=== PATIENT | female | born 1995 | race Caucasian/White ===

== ENCOUNTER 2023-12-08 12:23 | Emergency (ER) | payer MEDICAID, SELFPAY ==
--- NOTE | 2023-12-08 | US_ITS ---
WS: [id number] US pelvic complete* [id number] HISTORY: rlq pain COMPARISON: None available. Uterus: 5.8 cm x 4.1 cm x 4.1 cm. Normal size retroverted uterus. No fibroid or mass identified. Endometrium: 0.3 cm. Normal. Right ovary: 3.6 cm x 2.2 cm x 3.2 cm. Normal size and vascularity, no cystic or solid masses. Left ovary: 3.7 cm x 3.6 cm x 2.7 cm. Normal size and vascularity, no cystic or solid masses. No free fluid in the cul-de-sac. US/US transvaginal [id number] IMPRESSION: Negative transvaginal pelvic ultrasound.
[2023-12-08 12:24] VITALS: BP 120/65; PULSE 98; RESP 18; TEMP 36.6; O2SAT 99; BMI 18.8
--- NOTE | 2023-12-08 12:37 | ED_ITS ---
Documented by User: RODNEY Rosen 12/08/23 12:37 HPI - Abdominal Pain 2 General: Chief Complaint: Abdominal Pain Stated Complaint: Dr. Wilks sent over possible appendix Time Seen by Provider: 12/08/23 12:37 Related Data: Date of Last Menstrual Period: 12/08/23 [facility] 2 Female Reproductive History: Date of last menstrual period: 12/08/23 Course 2 Vital Signs: Vital signs: Vital Signs Temperature 97.9 F 12/08/23 12:24 Pulse Rate 98 12/08/23 12:24 Respiratory Rate 17 12/08/23 15:17 Blood Pressure 120/65 12/08/23 12:24 Pulse Oximetry 100 12/08/23 15:17 Oxygen Delivery Me thod Room Air 12/08/23 12:24 MDM - Abdominal Pain Lab Data 12/08/23 12:52 12/08/23 12:52 Labs/Radiology: Radiology Impressions Pelvis Ultrasound 12/08/23 12:46 IMPRESSION: Negative transvaginal pelvic ultrasound. Abdomen/Pelvis CT 12/08/23 14:53 IMPRESSION: 1. No evidence of acute abnormality in the abdomen or pelvis within limitations of a noncontrast exam. Laboratory Results WBC 4.88 10^3/uL (3.29-11.43) 12/08/23 12:52 RBC 5.04 10^6/uL (3.85-5.65) 12/08/23 12:52 Hgb 16.30 g/dL (11.27-16.99) 12/08/23 12:52 Hct 47.9 % (36-47) H 12/08/23 12:52 MCV 95.0 fl (85-98) 12/08/23 12:52 MCH 32.3 pg (27-33) 12/08/23 12:52 MCHC 34.0 g/dL (30-55) 12/08/23 12:52 RDW 11.7 % (12.1-15.1) L 12/08/23 12:52 Plt Count 168 10^3/cmm (157-399) 12/08/23 12:52 MPV 10.7 fL (7.4-10.4) H 12/08/23 12:52 Neut % (Auto) 85.0 % 12/08/23 12:52 Lymph % (Auto) 10.7 % 12/08/23 12:52 Beckham % (Auto) 3.5 % 12/08/23 12:52 Eos % (Auto) 0.2 % 12/08/23 12:52 Baso % (Auto) 0.4 % 12/08/23 12:52 Neut # (Auto) 4.15 10^3/uL (1.8-7.7) 12/08/23 12:52 Lymph # (Auto) 0.5 10^3/uL (0.8-4.8) L 12/08/23 12:52 Beckham # (Auto) 0.2 10^3/uL (0.2-0.9) 12/08/23 12:52 Eos # (Auto) 0.0 10^3/uL (0.0-0.8) 12/08/23 12:52 Baso # (Auto) 0.0 10^3/uL (0.0-0.1) 12/08/23 12:52 Nucleated RBC % (auto) 0 % 12/08/23 12:52 Nucleated RBCs # 0.0 /100WBC 12/08/23 12:52 Sodium 141 mmol/L (136-145) 12/08/23 12:52 Potassium 4.0 mmol/L (3.5-5.1) 12/08/23 12:52 Chloride 103 mmol/L (98-107) 12/08/23 12:52 Carbon Dioxide 25 mmol/L (22-29) 12/08/23 12:52 Anion Gap 17.0 (5-19) 12/08/23 12:52 BUN 10 mg/dL (6-20) 12/08/23 12:52 Creatinine 0.6 mg/dL (0.5-0.9) 12/08/23 12:52 GFR Calculation 118.2 mL/min (90-130) 12/08/23 12:52 Glucose 98 mg/dL (65-115) 12/08/23 12:52 Calculated Osmolality 291 mOsm/kg (285-295) 12/08/23 12:52 Calcium 9.8 mg/dL (8.5-10.5) 12/08/23 12:52 Total Bilirubin 0.5 mg/dL (0.15-1.2) 12/08/23 12:52 AST 11 U/L (0-32) 12/08/23 12:52 ALT 9 U/L (0-33) 12/08/23 12:52 Alkaline Phosphatase 74 U/L (35-105) 12/08/23 12:52 C-Reactive Protein 3.0 mg/L (0.0-4.9) 12/08/23 12:52 Total Protein 8.1 g/dL (6.6-8.7) 12/08/23 12:52 Albumin 5.0 g/dL (3.5-5.2) 12/08/23 12:52 Globulin 3.1 g/dL (1.3-4.6) 12/08/23 12:52 Lipase 20 U/L (13-60) 12/08/23 12:52 HCG, Qual Negative (Negative) 12/08/23 12:52 Urine Color Yellow (Yellow) 12/08/23 13:20 Urine Appearance Clear (CLEAR) 12/08/23 13:20 Urine pH 7 (5-7) 12/08/23 13:20 Ur Specific [place] 1.005 (1.005-1.030) 12/08/23 13:20 Urine Protein Neg (Negative) 12/08/23 13:20 Urine Glucose (UA) Norm (Normal) 12/08/23 13:20 Urine Ketones Negative (Negative) 12/08/23 13:20 Urine Blood 3+ (Negative) H 12/08/23 13:20 Urine Nitrate Negative (Negative) 12/08/23 13:20 Urine Bilirubin Neg (Negative) 12/08/23 13:20 Urine Urobilinogen Norm mg/dL (Negative) 12/08/23 13:20 Ur Leukocyte Esterase Negative (Negative) 12/08/23 13:20 Urine RBC 0-4 /hpf (0-2) H 12/08/23 13:20 Urine WBC 0-4 /hpf (0-5) H 12/08/23 13:20 Ur Squamous Epith Cells 0-4 /hpf (0-5) H 12/08/23 13:20 Amorphous Sediment Not Reportable 12/08/23 13:20 Urine Bacteria Trace /hpf (NONE) 12/08/23 13:20 Urine Mucus 1+ /hpf 12/08/23 13:20 Discharge Plan Discharge Patient Disposition: Home Clinical Impression: Abdominal pain Qualifiers: Abdominal location: right lower quadrant Qualified Code(s): R10.31 - Right lower quadrant pain Condition: Stable Prescriptions: New ondansetron 8 mg tablet,disintegrating 8 mg PO .q6 PRN (Reason: nausea and vomiting) Qty: 14 0RF diclofenac sodium 50 mg tablet,delayed release (DR/EC) 50 mg PO Q12H Qty: 20 0RF No Action oxcarbazepine 150 mg tablet See Rx Instructions .ROUTE .COMPLEX Rx Instructions: TAKE 1 TABLET BY MOUTH IN THE MORNING THEN TAKE 2 TABLETS BY MOUTH IN THE EVENING. clonazepam 1 mg tablet 1 mg PO TID folic acid 1 mg tablet 2 mg PO DAILY tizanidine 4 mg capsule 4 mg PO Q8H Discharge Orders: Discharge ED (Routine); Ordered 12/08/23 Ordered By: Fior Leos Discharge Diet: Usual diet Discharge Activity: Increase activity as tolerated Patient Instructions: Abdominal Pain (ED), Opioid Safety, Pain Management Activity Restrictions/Additional Instructions: Thank you for choosing [facility] for your healthcare needs today. Please realize this is an emergency room and that we are providing you with a medical screening exam and this may not be complete and all inclusive of all the testing and or work up that you may need to determine your ailment or severity of your illness. You have been screened and evaluated and felt safe for discharge. Health conditions do change or evolve sometimes and as such it is important that you follow up with your Primary Doctor to be re checked, 3-5 days is a general good time frame for follow up. You are always welcome to return to the ED for re assessment if your symptoms are worsening or you have new concerns Coding Level of Care Code ED Cafeteria Server for [employer] Documented by User: Fior Leos MD 12/08/23 17:15 HPI - Abdominal Pain 2 General: Chief Complaint: Abdominal Pain Stated Complaint: Dr. Wilks sent over possible appendix Time Seen by Provider: 12/08/23 12:37 History of Present Illness: 28-year-old female who presents emergenc y room with right lower quadrant pain. Her doctor told her to come here because they are worried about an ovarian cyst. Pain and present for several hours now. No nausea or vomiting. No dysuria. No fevers. Review of Systems 2 Narrative: Constitutional symptoms: Negative except as documented in HPI. Skin symptoms: Negative except as documented in HPI. Eye symptoms: Negative except as documented in HPI. ENMT symptoms: Negative except as documented in HPI. Respiratory symptoms: Negative except as documented in HPI. Cardiovascular symptoms: Negative except as documented in HPI. Gastrointestinal symptoms: Negative except as documented in HPI. Genitourinary symptoms: Negative except as documented in HPI. Musculoskeletal symptoms: Negative except as documented in HPI. Neurologic symptoms: Negative except as documented in HPI. Psychiatric symptoms: Negative except as documented in HPI. Endocrine symptoms: Negative except as documented in HPI. Physical Exam 2 Narrative: EXAM NARRATIVE: General: Alert, no acute distress. Skin: Warm, dry. Head: Normocephalic, atraumatic. Neck: Supple, trachea midline. Eye: Extraocular movements are intact. Ears, nose, mouth and throat: mucosa moist. Cardiovascular: Regular, Normal peripheral perfusion. Respiratory: Lungs are clear to auscultation, respirations are non-labored, breath sounds are equal, Symmetrical chest wall expansion. Gastrointestinal: Soft, moderate right lower quadrant tenderness to palpation, Non distended Musculoskeletal: Normal ROM, no deformity. Neurological: Alert and oriented, No focal neurological deficit observed. Psychiatric: Cooperative, appropriate mood & affect. Course 2 Vital Signs: Vital signs: Vital Signs Temperature 97.9 F 12/08/23 12:24 Pulse Rate 98 12/08/23 12:24 Respiratory Rate 17 12/08/23 15:17 Blood Pressure 120/65 12/08/23 12:24 Pulse Oximetry 100 12/08/23 15:17 Oxygen Delivery Me thod Room Air 12/08/23 12:24 MDM - Abdominal Pain Medical Decision Making Medical decision making: Differential diagnosis for this patient with right lower quadrant abdominal pain including but not limited to and based on the above HPI, review of systems and physical exam: Ureterolithiasis. Urinary tract infection. Appendicitis. colitis. small bowel obstruction. Crohn's flare. Pancreatitis. Cholelithiasis or cholecystitis. Hepatitis. Diverticulitis. Constipation. ovarian cyst. ovarian torsion Workup: Orders were placed to evaluate differential diagnosis based on the above differential, HPI and exam: Lab Review: Laboratory results were reviewed and interpreted by myself the emergency room physician. Lab work is completely normal. No leukocytosis. No anemia. No renal failure. CRP is normal. Pelvic ultrasound: No acute abnormality. This was reviewed and interpreted by myself the emergency room physician. I also reviewed the radiology report. CT of the abdomen and pelvis with contrast: No acute abnormality in the abdomen or pelvis. This was reviewed and interpreted by myself the emergency room physician. I also reviewed the radiology report. I reviewed the patient's medical record Reexamination: Patient says she feels a lot better after pain medications. No altered mental status. No focal motor deficits. No increased work of breathing Assessment and plan: Abdominal pain - Discharged home - Discussed plan with patient. Answered any questions. - Evaluation and treatment of this problem were appropriate in the emergency setting. Lab Data 12/08/23 12:52 12/08/23 12:52 Labs/Radiology: Radiology Impressions Pelvis Ultrasound 12/08/23 12:46 IMPRESSION: Negative transvaginal pelvic ultrasound. Abdomen/Pelvis CT 12/08/23 14:53 IMPRESSION: 1. No evidence of acute abnormality in the abdomen or pelvis within limitations of a noncontrast exam. Laboratory Results WBC 4.88 10^3/uL (3.29-11.43) 12/08/23 12:52 RBC 5.04 10^6/uL (3.85-5.65) 12/08/23 12:52 Hgb 16.30 g/dL (11.27-16.99) 12/08/23 12:52 Hct 47.9 % (36-47) H 12/08/23 12:52 MCV 95.0 fl (85-98) 12/08/23 12:52 MCH 32.3 pg (27-33) 12/08/23 12:52 MCHC 34.0 g/dL (30-55) 12/08/23 12:52 RDW 11.7 % (12.1-15.1) L 12/08/23 12:52 Plt Count 168 10^3/cmm (157-399) 12/08/23 12:52 MPV 10.7 fL (7.4-10.4) H 12/08/23 12:52 Neut % (Auto) 85.0 % 12/08/23 12:52 Lymph % (Auto) 10.7 % 12/08/23 12:52 Beckham % (Auto) 3.5 % 12/08/23 12:52 Eos % (Auto) 0.2 % 12/08/23 12:52 Baso % (Auto) 0.4 % 12/08/23 12:52 Neut # (Auto) 4.15 10^3/uL (1.8-7.7) 12/08/23 12:52 Lymph # (Auto) 0.5 10^3/uL (0.8-4.8) L 12/08/23 12:52 Beckham # (Auto) 0.2 10^3/uL (0.2-0.9) 12/08/23 12:52 Eos # (Auto) 0.0 10^3/uL (0.0-0.8) 12/08/23 12:52 Baso # (Auto) 0.0 10^3/uL (0.0-0.1) 12/08/23 12:52 Nucleated RBC % (auto) 0 % 12/08/23 12:52 Nucleated RBCs # 0.0 /100WBC 12/08/23 12:52 Sodium 141 mmol/L (136-145) 12/08/23 12:52 Potassium 4.0 mmol/L (3.5-5.1) 12/08/23 12:52 Chloride 103 mmol/L (98-107) 12/08/23 12:52 Carbon Dioxide 25 mmol/L (22-29) 12/08/23 12:52 Anion Gap 17.0 (5-19) 12/08/23 12:52 BUN 10 mg/dL (6-20) 12/08/23 12:52 Creatinine 0.6 mg/dL (0.5-0.9) 12/08/23 12:52 GFR Calculation 118.2 mL/min (90-130) 12/08/23 12:52 Glucose 98 mg/dL (65-115) 12/08/23 12:52 Calculated Osmolality 291 mOsm/kg (285-295) 12/08/23 12:52 Calcium 9.8 mg/dL (8.5-10.5) 12/08/23 12:52 Total Bilirubin 0.5 mg/dL (0.15-1.2) 12/08/23 12:52 AST 11 U/L (0-32) 12/08/23 12:52 ALT 9 U/L (0-33) 12/08/23 12:52 Alkaline Phosphatase 74 U/L (35-105) 12/08/23 12:52 C-Reactive Protein 3.0 mg/L (0.0-4.9) 12/08/23 12:52 Total Protein 8.1 g/dL (6.6-8.7) 12/08/23 12:52 Albumin 5.0 g/dL (3.5-5.2) 12/08/23 12:52 Globulin 3.1 g/dL (1.3-4.6) 12/08/23 12:52 Lipase 20 U/L (13-60) 12/08/23 12:52 HCG, Qual Negative (Negative) 12/08/23 12:52 Urine Color Yellow (Yellow) 12/08/23 13:20 Urine Appearance Clear (CLEAR) 12/08/23 13:20 Urine pH 7 (5-7) 12/08/23 13:20 Ur Specific [place] 1.005 (1.005-1.030) 12/08/23 13:20 Urine Protein Neg (Negative) 12/08/23 13:20 Urine Glucose (UA) Norm (Normal) 12/08/23 13:20 Urine Ketones Negative (Negative) 12/08/23 13:20 Urine Blood 3+ (Negative) H 12/08/23 13:20 Urine Nitrate Negative (Negative) 12/08/23 13:20 Urine Bilirubin Neg (Negative) 12/08/23 13:20 Urine Urobilinogen Norm mg/dL (Negative) 12/08/23 13:20 Ur Leukocyte Esterase Negative (Negative) 12/08/23 13:20 Urine RBC 0-4 /hpf (0-2) H 12/08/23 13:20 Urine WBC 0-4 /hpf (0-5) H 12/08/23 13:20 Ur Squamous Epith Cells 0-4 /hpf (0-5) H 12/08/23 13:20 Amorphous Sediment Not Reportable 12/08/23 13:20 Urine Bacteria Trace /hpf (NONE) 12/08/23 13:20 Urine Mucus 1+ /hpf 12/08/23 13:20 All radiology interpretation(s) finalized by discharge Discharge Plan Discharge Patient Disposition: Home Clinical Impression: Abdominal pain Qualifiers: Abdominal location: right lower quadrant Qualified Code(s): R10.31 - Right lower quadrant pain Condition: Stable Prescriptions: New ondansetron 8 mg tablet,disintegrating 8 mg PO .q6 PRN (Reason: nausea and vomiting) Qty: 14 0RF diclofenac sodium 50 mg tablet,delayed release (DR/EC) 50 mg PO Q12H Qty: 20 0RF No Action oxcarbazepine 150 mg tablet See Rx Instructions .ROUTE .COMPLEX Rx Instructions: TAKE 1 TABLET BY MOUTH IN THE MORNING THEN TAKE 2 TABLETS BY MOUTH IN THE EVENING. clonazepam 1 mg tablet 1 mg PO TID folic acid 1 mg tablet 2 mg PO DAILY tizanidine 4 mg capsule 4 mg PO Q8H Discharge Orders: Discharge ED (Routine); Ordered 12/08/23 Ordered By: Fior Leos Discharge Diet: Usual diet Discharge Activity: Increase activity as tolerated Patient Instructions: Abdominal Pain (ED), Opioid Safety, Pain Management Activity Restrictions/Additional Instructions: Thank you for choosing [facility] for your healthcare needs today. Please realize this is an emergency room and that we are providing you with a medical screening exam and this may not be complete and all inclusive of all the testing and or work up that you may need to determine your ailment or severity of your illness. You have been screened and evaluated and felt safe for discharge. Health conditions do change or evolve sometimes and as such it is important that you follow up with your Primary Doctor to be re checked, 3-5 days is a general good time frame for follow up. You are always welcome to return to the ED for re assessment if your symptoms are worsening or you have new concerns Coding Level of Care Code ED Cafeteria Server for Sandro Garay
--- NOTE | 2023-12-08 12:46 | US_ITS ---
WS: [id number] US pelvic complete* [id number] HISTORY: rlq pain COMPARISON: None available. Uterus: 5.8 cm x 4.1 cm x 4.1 cm. Normal size retroverted uterus. No fibroid or mass identified. Endometrium: 0.3 cm. Normal. Right ovary: 3.6 cm x 2.2 cm x 3.2 cm. Normal size and vascularity, no cystic or solid masses. Left ovary: 3.7 cm x 3.6 cm x 2.7 cm. Normal size and vascularity, no cystic or solid masses. No free fluid in the cul-de-sac.
[2023-12-08 13:02] LABS: Basophils % 0.4 %; Eosinophils % 0.2 %; Hematocrit 47.9 % (36-47); Lymphocytes # 0.5 10^3/uL (0.8-4.8); Lymphocytes % 10.7 %; Mean Corpuscular Hemoglobin 32.3 pg (27-33); Mean Platelet Volume 10.7 fL (7.4-10.4); Monocytes # 0.2 10^3/uL (0.2-0.9); Monocytes % 3.5 %; Neutrophils # 4.15 10^3/uL (1.8-7.7); Nucleated Red Blood Cells % 0 %; Platelet Count 168 10^3/cmm (157-399); Red Blood Count 5.04 10^6/uL (3.85-5.65); Red Cell Distribution Width 11.7 % (12.1-15.1); White Blood Count 4.88 10^3/uL (3.29-11.43)
[2023-12-08 13:18] LABS: HCG, Serum Qual Negative (Negative)
[2023-12-08 13:21] LABS: Alanine Aminotransferase 9 U/L (0-33); Alkaline Phosphatase 74 U/L (35-105); Aspartate Amino Transferase 11 U/L (0-32); Blood Urea Nitrogen 10 mg/dL (6-20); Calcium 9.8 mg/dL (8.5-10.5); Carbon Dioxide 25 mmol/L (22-29); Chloride 103 mmol/L (98-107); Creatinine Clr Calc Pharmacy 115.2686; Globulin 3.1 g/dL (1.3-4.6); Glomerular Filtration Rate 118.2 mL/min (90-130); Glucose 98 mg/dL (65-115); Lipase 20 U/L (13-60); Osmolality Calculated 291 mOsm/kg (285-295); Sodium 141 mmol/L (136-145); Total Bilirubin 0.5 mg/dL (0.15-1.2); Total Protein 8.1 g/dL (6.6-8.7)
[2023-12-08 13:57] LABS: Urine Appearance Clear (CLEAR); Urine Color Yellow (Yellow); pH Urine 7 (5-7)
[2023-12-08 13:58] LABS: Add Urine Culture? No; Add Urine Microscopic? YES; Bacteria Urine TRACE /hpf; Bilirubin Urine Neg (Negative); Blood Urine 3+ (Negative); Glucose Urine UA Norm (Normal); Ketones Urine Negative (Negative); Leukocyte Esterase Urine Negative (Negative); Mucus Urine 1+ /hpf; Nitrate Urine Negative (Negative); Protein Urine Neg (Negative); RBC Urine 0-4 /hpf (0-2); Specific Gravity, Urine 1.005 (1.005-1.030); Squamous Epithelial Cell Urine 0-4 /hpf (0-5); Urobilinogen Urine Norm (Negative); WBC Urine 0-4 /hpf (0-5)
--- NOTE | 2023-12-08 14:53 | CTR_ITS ---
PROCEDURE INFORMATION: Exam: CT Abdomen And Pelvis Without Contrast Exam date and time: 12/08/2023 3:01 PM Age: 28 years old Clinical indication: Abdominal pain; Prior surgery; Surgery date: 6+ months; Surgery type: Gb; Patient HX: PT presents to ED C/O rlq pain, n/v x3 days. PT had 5 episodes of vomiting today. PT sent here from pcp. PT had cholecystectomy in past. PT believes it May be ovarian cyst. PT does not have HX of cysts. PT on period currently reports it is normal besides increased cramping. PT denies diarrhea; Additional info: Flank pain TECHNIQUE: Imaging protocol: Computed tomography of the abdomen and pelvis without contrast. Radiation optimization: All CT scans at this facility use at least one of these dose optimization techniques: automated exposure control; mA and/or kV adjustment per patient size (includes targeted exams where dose is matched to clinical indication); or iterative reconstruction. COMPARISON: US pelvic complete* [id number] 12/08/2023 1:27 PM RADIATION DOSE METRICS: Total DLP (mGy-cm): 315.55 FINDINGS: Lungs: Subsegmental bibasilar atelectasis. The visualized lung bases are otherwise clear. Diaphragm: No evidence of diaphragmatic defect. Liver: No evidence of focal hepatic lesion within limitation of a noncontrast exam. Gallbladder and biliary ducts: Status post cholecystectomy. No evidence of intrahepatic or extrahepatic biliary dilatation. Pancreas: Grossly unremarkable. Spleen: Grossly unremarkable. Adrenal glands: Grossly unremarkable. Kidneys and ureters: Nonobstructive 1 mm left-sided renal stone. Otherwise no gross renal parenchymal abnormality. No evidence of hydronephrosis or ureteral stone. Stomach and bowel: No evidence of bowel obstruction or perienteric inflammatory changes. Appendix: Normal appendix. Intraperitoneal space: No evidence of free air or fluid collection. Vasculature: No evidence of aneurysmal dilitation of abdominal aorta. Lymph nodes: No evidence of adenopathy. Urinary bladder: Grossly unremarkable. Reproductive: Grossly unremarkable. Bones/joints: No evidence of acute fracture or aggresive osseous lesion. Soft tissues: No evidence of fluid collection or hematoma in the superficial soft tissues. CT/CT abdomen pelvis wo con [id number] IMPRESSION: 1. No evidence of acute abnormality in the abdomen or pelvis within limitations of a noncontrast exam.
[2023-12-08 15:17] VITALS: RESP 17; O2SAT 100
[2023-12-08] MEDS: HYDROmorphone 1 mg/mL INJ 1 mL IVP (15:17)
[2023-12-08] MEDS: ondansetron 2 mg/ML SDV 2 mL 8 MG IVP (15:18)
[2023-12-08] MEDS: sodium chloride 0.9% 1,000 ML 999 ML IV (15:18)
[2023-12-08 17:30] VITALS: BP 120/65; PULSE 98; RESP 17; TEMP 36.6; O2SAT 100
== END 2023-12-08 17:30 | disposition home or self-care (01) ==
PROVIDERS: Physician Assistant; Emergency Provider Emergency Medicine
DX: R10.31 Right lower quadrant pain (principal)
CPT/HCPCS: 74176; 76830; 76856; 80053; 81001; 83690; 84703; 85025; 86140; 96361; 96374; 96375; 99285; J1170; J2405; J7030